=== PATIENT | male | born 1995 | race Caucasian/White ===

== ENCOUNTER 2019-04-01 15:54 | Observation (INO) ==
[2019-04-01] MEDS ORDERED: Isovue-370 500 ML BOTTLE IVP ONE (16:32)
[2019-04-01] MEDS ORDERED: 0.9 % Sodium Chloride 1,000 ML IVC ONE (16:32)
[2019-04-01] MEDS ORDERED: *HR* FentaNYL (PF) 100 MCG/2 ML VIAL IVP ONE (16:32)
[2019-04-01] MEDS ORDERED: Ondansetron 4 MG/2 ML VIAL IVP ONE ×2 (16:32→19:23)
[2019-04-01 16:37] LABS: Bilirubin,Urine Negative (Negative); Blood,Urine Negative (Negative); Clarity,Urine Clear (Clear); Color,Urine Yellow (Yellow); Glucose,Urine (UA) Normal (Normal); Ketones,Urine 80 mg/dL (Negative); Leukocyte Esterase,Urine Negative (Negative); Nitrite,Urine Negative (Negative); PH,Urine 6.5 pH Units (5.0-8.0); Protein,Urine Negative (Neg-Trace); Specific Gravity,Urine 1.026 (1.010-1.025); Urobilinogen,Urine Normal (Normal)
[2019-04-01 17:00] LABS: Alanine Aminotransferase 10 Units/L (7-52); Albumin 4.9 g/dL (3.5-5.7); Albumin/Globulin Ratio 2.1 (1.1-2.2); Alkaline Phosphatase 43 Units/L (34-104); Aspartate Amino Transferase 12 Units/L (13-39); BUN/Creatinine Ratio 12 (6-26); Bilirubin,Direct 0.2 mg/dL (0.0-0.2); Bilirubin,Indirect 0.9 mg/dL (0.0-1.0); Bilirubin,Total 1.1 mg/dL (0.3-1.0); Blood Urea Nitrogen 10 mg/dL (6-20); Carbon Dioxide 25 mEq/L (23-29); Chloride 102 mEq/L (98-107); Globulin 2.3 g/dL (2.4-3.5); Glucose 104 mg/dL (70-105); Lipase 8 Units/L (11-82); Osmolality,Calculated 289 (280-300); Potassium 3.3 mEq/L (3.5-5.1); Sodium 140 mEq/L (136-145); Total Protein 7.2 g/dL (6.4-8.9); eGFR For African Americans > 60 (> 60); eGFR For Non-African Americans > 60 (> 60)
[2019-04-01] MEDS ORDERED: Piperacillin/Tazobactam 3.375 GM in 0.9 % Sodium Chloride Mini Bag 100 ML IVPB ONE (18:32)
[2019-04-01] MEDS ORDERED: Bupivacaine/EPI 1:200k 0.5%PF 30 ML VIAL ONE (19:02)
[2019-04-01] MEDS ORDERED: CefOXitin 1,000 MG VIAL ONE (19:02)
[2019-04-01] MEDS ORDERED: 0.9 % Sodium Chloride 1,000 ML IVC SCH ×2 (19:15→21:29)
[2019-04-01 19:16] LABS: Basophils % 0.1 %; Hematocrit 41.8 % (37.5-50.1); Hemoglobin 14.7 g/dL (12.9-16.9); Immature Granulocytes % 0.4 % (0-4); Immature Platelets 9.9 % (1.1-6.1); Lymphocytes % 7.3 %; Mean Corpuscular HGB Conc 35.2 g/dL (31.6-35.5); Mean Corpuscular Hemoglobin 32.2 pg (28.0-33.3); Mean Corpuscular Volume 91.5 fL (83.0-100.0); Mean Platelet Volume 11.1 fL (9.4-12.4); Monocytes # 0.5 K/mcL (0.0-1.3); Monocytes % 3.9 %; Neutrophils # 12.3 K/mcL (1.6-8.9); Platelet Count 173 K/mcL (140-400); Red Blood Count 4.57 M/mcL (4.19-5.50); Red Cell Distribution Width 12.8 % (11.5-14.5); Segmented Neutrophils % 88.3 %; White Blood Count 13.9 K/mcL (4.3-11.1)
[2019-04-01] MEDS ORDERED: Albuterol 2.5 MG/3 ML NEBULIZER IH ONE (19:20)
[2019-04-01] MEDS ORDERED: *HR* OxyCODONE Immed Rel 5 MG TABLET PO PRN (19:23)
[2019-04-01] MEDS ORDERED: Acetaminophen IV 1,000 MG/100 ML INFUS..BTL ONE (19:24)
[2019-04-01] MEDS ORDERED: Famotidine 20 MG/2 ML VIAL ONE (19:24)
[2019-04-01] MEDS ORDERED: *HR* FentaNYL (PF) 100 MCG/2 ML VIAL ONE (19:35)
[2019-04-01] MEDS ORDERED: *HR* Rocuronium Bromide 50 MG/5 ML VIAL ONE (19:36)
[2019-04-01] MEDS ORDERED: *HR* Propofol 200 MG/20 ML VIAL IVP ONE (19:36)
[2019-04-01] MEDS ORDERED: Ondansetron 4 MG/2 ML VIAL ONE (19:36)
[2019-04-01] MEDS ORDERED: Albuterol 2.5 MG/3 ML NEBULIZER ONE (19:36)
[2019-04-01] MEDS ORDERED: Lidocaine -MPF 2% 2 ML VIAL ONE (19:36)
[2019-04-01] MEDS ORDERED: Dexamethasone 4 MG/ML VIAL ONE (19:36)
[2019-04-01] MEDS ORDERED: *HR* Succinylcholine 200 MG/10 ML VIAL IVP ONE (19:38)
[2019-04-01] MEDS ORDERED: Lidocaine HCL 4 ML Topical Solution (Laryng-O-Jet Kit Sterile Pak) TP ONE (19:39)
[2019-04-01] MEDS ORDERED: Ketorolac 30 MG/ML VIAL ONE (20:18)
[2019-04-01] MEDS ORDERED: Neostigmine Methylsulfate 3 MG/3 ML SYRINGE ONE (20:21)
[2019-04-01] MEDS ORDERED: Ondansetron 4 MG/2 ML VIAL IVP PRN (21:29)
[2019-04-01] MEDS ORDERED: FLU Vac QV 19-20 (6Month+)/PF 0.5 ML SYRINGE IM ONE (23:46)
[2019-04-02] MEDS: *HR* OxyCODONE/APAP 5/325 TABLET PO PRN ×2 (00:47→08:17)
[2019-04-02] MEDS ORDERED: Piperacillin/Tazobactam 3.375 GM in 0.9 % Sodium Chloride Mini Bag 100 ML IVPB SCH (04:00)
[2019-04-02 07:15] VITALS: BP 123/76
[2019-04-02] MEDS ORDERED: Ibuprofen 800 MG TABLET PO ONE (09:49)
[2019-04-02] MEDS ORDERED: FLU Vac QV 19-20 (6Month+)/PF 0.5 ML SYRINGE IM ONE (12:22)
== END 2019-04-02 13:04 | disposition home or self-care (01) ==
LOC: 3ANU 15:54 → EMEROOARM 15:54 → 3ANU 19:16 → EMEROOARM 19:18
PROVIDERS: ADMIT Surgery; ATTEND Surgery